=== PATIENT | female | born 1930 | race Caucasian/White ===

== ENCOUNTER → 2017-08-18 | Outpatient (CLI) | payer MEDICARE ==
[~2017-08-18] MED LIST: AMLO5TAB4 PO; ASPI-496 PO; ASPI-515 PO; CARV-39 PO; CARV12.52 PO; CARV12.543 PO; CHOL100012 PO; DOXA4TAB2 PO; HYDR-3343 PO; HYDR12.58 PO; LANS15TA6 PO; LEVO112T4 PO; LEVO50TA5 PO; LYSI100010 PO; LYSI500T PO; MULT-34 PO; OLME40TA12 PO; RALO60TA PO; SIMV40TA3 PO; TERA2CAP3 PO; TERA5CAP3 PO; VITA1TAB3 PO
== END | disposition home or self-care (01) ==
LOC: CFH 10:18
PROVIDERS: ATTEND Internal Medicine
DX: Z12.31 Encounter for screening mammogram for malignant neoplasm of breast (principal)
CPT/HCPCS: 77063; G0202

== ENCOUNTER → 2018-08-20 | Outpatient (CLI) | payer MEDICARE | END | disposition home or self-care (01) | LOC: CFH 09:28 | PROVIDERS: ATTEND Internal Medicine | DX: Z12.31 Encounter for screening mammogram for malignant neoplasm of breast (principal) | CPT/HCPCS: 77063; 77067 ==

== ENCOUNTER 2019-09-03 14:18 | Outpatient (CLI) | payer MEDICARE ==
[~2019-09-03 14:18] MED LIST changes: +CEFD300C37 PO; +CLON1PAT8 TP; -HYDR12.58 PO; +HYDROCHLOROTH12.5 MG PO; +LEVO125T5 PO; -LYSI500T PO; +LYSI500T8 PO; +MINO2.5T PO; +POLY17PO5 PO; +SPIR25TA PO
== END 2019-09-03 23:59 | disposition home or self-care (01) ==
LOC: CFH 14:18
PROVIDERS: ATTEND Internal Medicine
DX: Z12.31 Encounter for screening mammogram for malignant neoplasm of breast (principal); N64.89 Other specified disorders of breast; Z80.1 Family history of malignant neoplasm of trachea, bronchus and lung; Z80.0 Family history of malignant neoplasm of digestive organs; Z80.8 Family history of malignant neoplasm of other organs or systems
CPT/HCPCS: 77067

== ENCOUNTER 2020-06-20 20:14 | Inpatient (IN) | payer MEDICARE ==
[~2020-06-20] VITALS: Ht 161.3 cm; Wt 64.8 kg
[~2020-06-20 20:14] MED LIST changes: +LISINOPRIL; +LOPE2CAP3 PO; +SIMV40TA20 PO; -SIMV40TA3 PO
--- NOTE | 2020-06-20 20:32 | NUR ---
BREAK RN: ASSUMED CARE OF PATIENT WHILE PRIMARY RN IS ON BREAK. PT C/O BLADDER PAIN, DRIBBLING AND URGENCY. VS STABLE. NO ACUTE DISTRESS NOTED. BLANKET GIVEN. CALL LIGHT IN PLACE. WILL CONTINUE TO MONITOR.
--- NOTE | 2020-06-20 20:55 | NUR ---
REPORT GIVEN TO DUARTE SANCHEZ
--- NOTE | 2020-06-20 21:08 | NUR ---
BLADDER SCAN SHOWED APPROX 89ML URINE IN BLADDER. ER PA NOTIFIED
[2020-06-20 21:23] LABS: BASOPHILS # (AUTO) 0.02 x10^3/uL (0-0.1); BASOPHILS % (AUTO) 0 % (0-1); EOSINOPHILS # (AUTO) 0.01 x10^3/uL (0-0.4); EOSINOPHILS % (AUTO) 0 % (1-7); LYMPHOCYTES % (AUTO) 6 % (22-44); MD NO; MEAN CORPUSCULAR HEMOGLOBIN 28.1 pg (27.0-34.8); MEAN CORPUSCULAR HGB CONC 33.5 g/dL (32.4-35.8); MEAN CORPUSCULAR VOLUME 83.8 fL (80-100); MEAN PLATELET VOLUME 7.7 fL (7.4-10.4); MONOCYTES # (AUTO) 0.58 x10^3/uL (0.2-0.8); MONOCYTES % (AUTO) 5 % (2-9); NEUTROPHILS # (AUTO) 9.66 x10^3/uL (1.8-6.8); NEUTROPHILS % (AUTO) 89 % (42-75); PLATELET COUNT 182 x10^3/uL (130-400); RED CELL DISTRIBUTION WIDTH 19.3 % (9.6-15.2)
[2020-06-20 21:34] LABS: ALANINE AMINOTRANSFERASE 18 U/L (12-78); ALBUMIN 2.9 g/dL (3.4-5.0); ANION GAP 7 mmol/L (5-15); CALCIUM 8.7 mg/dL (8.5-10.1); CHLORIDE 105 mmol/L (98-107); CREATININE 1.94 mg/dL (0.55-1.02)
[2020-06-20 21:37] LABS: ALKALINE PHOSPHATASE 81 U/L (45-117); BILIRUBIN,TOTAL 0.4 mg/dL (0.2-1.0); TOTAL PROTEIN 6.2 g/dL (6.4-8.2)
--- NOTE | 2020-06-20 21:38 | NUR ---
STRAIGHT CATH PERFORMED FOR STERILE UA
--- NOTE | 2020-06-20 21:45 | NUR ---
APPROXIMATELY 90ML DRAINED FROM BLADDER VIA STRAIGHT CATH
[2020-06-20 21:59] LABS: MICROSCOPIC INDICATED
[2020-06-20] MEDS ORDERED: ACETAMINOPHEN 325 MG TABLET PO ONE (22:00)
[2020-06-20] MEDS ORDERED: ACETAMINOPHEN 325 MG TABLET ONE (22:11)
[2020-06-20] MEDS ORDERED: CEFTRIAXONE PMX 1GM/50ML 50 ML ONE (22:11)
[2020-06-20] MEDS ORDERED: CEFTRIAXONE PMX 1GM/50ML 50 ML IV ONE (22:30)
[2020-06-20] MEDS ORDERED: SODIUM CHLORIDE 0.9% 1,000ML IVBOLUS ONE (22:30)
--- NOTE | 2020-06-20 23:00 | NUR ---
REPORT GIVEN TO DUARTE NUÑEZ. PLAN OF CARE DISCUSSED
--- NOTE | 2020-06-20 23:04 | NUR ---
BLOOD CULTURES X2 DRAWN PRIOR TO ABX ADMIN
[2020-06-21] MEDS ORDERED: morphine SULFATE 10 MG/ML, 1ML IVPush PRN
[2020-06-21] MEDS ORDERED: POLYETHYLENE GLYCOL 17 GM PACKET PO PRN
[2020-06-21] MEDS ORDERED: CEFTRIAXONE PMX 1GM/50ML 50 ML IV SCH
[2020-06-21] MEDS ORDERED: hydrALAzine 20 MG/ML, 1ML IVPush PRN
[2020-06-21] MEDS ORDERED: ONDANSETRON 2MG/ML, 2ML IVPush PRN
[2020-06-21] MEDS ORDERED: ACETAMINOPHEN 325 MG TABLET PO PRN
[2020-06-21] MEDS: CARVEDILOL 25 MG TABLET PO SCH ×3 (00:29→21:15)
[2020-06-21 00:50] VITALS: BP 128/58
[2020-06-21 06:01] VITALS: BP 154/67
[2020-06-21 07:28] LABS: BASOPHILS # (AUTO) 0.02 x10^3/uL (0-0.1); BASOPHILS % (AUTO) 0 % (0-1); EOSINOPHILS # (AUTO) 0.01 x10^3/uL (0-0.4); EOSINOPHILS % (AUTO) 0 % (1-7); LYMPHOCYTES # (AUTO) 0.51 x10^3/uL (1-3.4); LYMPHOCYTES % (AUTO) 6 % (22-44); MD NO; MEAN CORPUSCULAR HEMOGLOBIN 27.8 pg (27.0-34.8); MEAN CORPUSCULAR HGB CONC 33.3 g/dL (32.4-35.8); MEAN CORPUSCULAR VOLUME 83.6 fL (80-100); MEAN PLATELET VOLUME 7.7 fL (7.4-10.4); MONOCYTES # (AUTO) 0.58 x10^3/uL (0.2-0.8); MONOCYTES % (AUTO) 7 % (2-9); NEUTROPHILS # (AUTO) 7.77 x10^3/uL (1.8-6.8); NEUTROPHILS % (AUTO) 88 % (42-75); PLATELET COUNT 173 x10^3/uL (130-400); RED BLOOD COUNT 3.04 x10^6/uL (3.82-5.3); RED CELL DISTRIBUTION WIDTH 19.5 % (9.6-15.2)
[2020-06-21 07:33] LABS: ANION GAP 11 mmol/L (5-15); CHLORIDE 106 mmol/L (98-107); CREATININE 1.87 mg/dL (0.55-1.02)
[2020-06-21] MEDS: ASPIRIN 81 MG TABLET EC PO SCH (07:54)
[2020-06-21] MEDS: TERAZOSIN 5MG CAPSULE PO SCH ×2 (07:54→21:16)
[2020-06-21] MEDS: LEVOTHYROXINE 125 MCG TABLET PO SCH (07:54)
[2020-06-21] MEDS ORDERED: SPIRONOLACTONE 25 MG TABLET PO SCH (09:00)
[2020-06-21] MEDS: TERAZOSIN 2MG CAPSULE PO SCH (11:53)
[2020-06-21] MEDS: SODIUM CHLORIDE 0.9% 1,000 ML IV SCH ×2 (11:54→22:33)
[2020-06-21 15:16] VITALS: BP 142/58
[2020-06-21] MEDS: AMLODIPINE 5 MG TABLET PO SCH (19:45)
[2020-06-21 20:38] VITALS: BP 160/67
[2020-06-21 21:13] VITALS: BP 160/70
[2020-06-21] MEDS: SIMVASTATIN 40 MG TABLET PO SCH (21:16)
[2020-06-21] MEDS: CEFTRIAXONE PMX 2GM/50ML 50 ML IV SCH (22:33)
[2020-06-22 02:11] VITALS: BP 145/56
[2020-06-22 06:39] LABS: BASOPHILS # (AUTO) 0.01 x10^3/uL (0-0.1); BASOPHILS % (AUTO) 0 % (0-1); EOSINOPHILS # (AUTO) 0.03 x10^3/uL (0-0.4); EOSINOPHILS % (AUTO) 0 % (1-7); LYMPHOCYTES # (AUTO) 0.75 x10^3/uL (1-3.4); LYMPHOCYTES % (AUTO) 12 % (22-44); MD NO; MEAN CORPUSCULAR HEMOGLOBIN 27.4 pg (27.0-34.8); MEAN CORPUSCULAR HGB CONC 32.9 g/dL (32.4-35.8); MEAN CORPUSCULAR VOLUME 83.5 fL (80-100); MEAN PLATELET VOLUME 7.9 fL (7.4-10.4); MONOCYTES # (AUTO) 0.46 x10^3/uL (0.2-0.8); MONOCYTES % (AUTO) 8 % (2-9); NEUTROPHILS # (AUTO) 4.84 x10^3/uL (1.8-6.8); NEUTROPHILS % (AUTO) 79 % (42-75); PLATELET COUNT 170 x10^3/uL (130-400); RED BLOOD COUNT 2.79 x10^6/uL (3.82-5.3)
[2020-06-22 07:20] LABS: ANION GAP 6 mmol/L (5-15); CHLORIDE 109 mmol/L (98-107); CREATININE 1.73 mg/dL (0.55-1.02)
[2020-06-22 07:43] VITALS: BP 147/70
[2020-06-22] MEDS: ASPIRIN 81 MG TABLET EC PO SCH (07:52)
[2020-06-22] MEDS: TERAZOSIN 5MG CAPSULE PO SCH ×2 (07:52→20:50)
[2020-06-22] MEDS: AMLODIPINE 5 MG TABLET PO SCH ×2 (07:52→20:49)
[2020-06-22] MEDS: LEVOTHYROXINE 125 MCG TABLET PO SCH (07:52)
[2020-06-22] MEDS: CARVEDILOL 25 MG TABLET PO SCH ×2 (07:52→20:49)
[2020-06-22] MEDS: TERAZOSIN 2MG CAPSULE PO SCH (12:31)
[2020-06-22 12:32] VITALS: BP 100/48
[2020-06-22 19:26] VITALS: BP 135/68
[2020-06-22 20:48] VITALS: BP 148/61
[2020-06-22] MEDS: SIMVASTATIN 40 MG TABLET PO SCH (20:50)
[2020-06-22] MEDS: SODIUM CHLORIDE FLUSH 10ML SYR IVF SCH (20:50)
[2020-06-22] MEDS: CEFTRIAXONE PMX 2GM/50ML 50 ML IV SCH (23:08)
[2020-06-23 01:42] VITALS: BP 128/67
[2020-06-23] MEDS: LEVOTHYROXINE 125 MCG TABLET PO SCH (07:55)
[2020-06-23 08:03] VITALS: BP 145/66
[2020-06-23] MEDS: AMLODIPINE 5 MG TABLET PO SCH (08:08)
[2020-06-23] MEDS: ASPIRIN 81 MG TABLET EC PO SCH (08:08)
[2020-06-23] MEDS: TERAZOSIN 5MG CAPSULE PO SCH (08:08)
[2020-06-23] MEDS: CARVEDILOL 25 MG TABLET PO SCH (08:08)
[2020-06-23] MEDS: SODIUM CHLORIDE FLUSH 10ML SYR IVF SCH (08:09)
[2020-06-23] MEDS ORDERED: CEFD300C37 PO (09:09)
== END 2020-06-23 10:16 | disposition home or self-care (01) | DRG 690 ==
LOC: ED 21:49 → EDIP 22:41 → 4NE 23:28 → DCLOUNGE 06-23 10:10
PROVIDERS: ADMIT Family Medicine; ATTEND Hospitalist
DX: N10 Acute pyelonephritis (principal); E87.2 Acidosis; I50.32 Chronic diastolic (congestive) heart failure; R78.81 Bacteremia; I13.0 Hypertensive heart and chronic kidney disease with heart failure and stage 1 through stage 4 chronic kidney disease, or unspecified chronic kidney disease; N17.0 Acute kidney failure with tubular necrosis; B96.20 Unspecified Escherichia coli [E. coli] as the cause of diseases classified elsewhere; B96.89 Other specified bacterial agents as the cause of diseases classified elsewhere; D64.9 Anemia, unspecified; K59.00 Constipation, unspecified; E03.9 Hypothyroidism, unspecified; E78.5 Hyperlipidemia, unspecified; E86.0 Dehydration; N18.9 Chronic kidney disease, unspecified; K21.9 Gastro-esophageal reflux disease without esophagitis; Z88.0 Allergy status to penicillin; Z79.899 Other long term (current) drug therapy
CPT/HCPCS: 36415; 80048; 80053; 81001; 83605; 84145; 85025; 87040; 87077; 87086; 87186; 96361; 96374; 99285; G0378; J0696; J7030

== ENCOUNTER → 2021-04-21 | Outpatient (CLI) | payer MEDICARE ==
[~2021-04-21] MED LIST changes: -ASPI-515 PO; +ASPI-963 PO
== END | disposition home or self-care (01) ==
LOC: RAD 15:38
PROVIDERS: ATTEND Nurse Practitioner
DX: I86.8 Varicose veins of other specified sites (principal); R22.42 Localized swelling, mass and lump, left lower limb